=== PATIENT | female | born 1940 | race Caucasian/White ===

== ENCOUNTER 2018-05-03 13:34 | Inpatient (IN) | payer MEDICARE, MEDICAID ==
[~2018-05-03] VITALS: Ht 162.6 cm; Wt 62.8 kg
[~2018-05-03 13:34] MED LIST: ALBU8.5H5 INH; AMLO5TAB2 PO; ASPI325T17 PO; CARV-39 PO; CEFD300C37 PO; CHOL10002 PO; FURO-92 PO; GLYB5TAB3 PO; HYDR25TA6 PO; INSU100C SQ-INSULIN; INSU100V8 SQ; LEVO500T8 PO; METF10002 PO; POTA10TA31 PO; RAMI10CA PO; SIMV40TA3 PO
[2018-05-03] MEDS ORDERED: LEVO500T8 PO (13:52)
[2018-05-03] MEDS ORDERED: SODIUM CHLORIDE 0.9% 1,000ML IVBOLUS ONE (14:00)
[2018-05-03] MEDS ORDERED: SODIUM CHLORIDE FLUSH 10ML SYR IVF ONE (14:00)
[2018-05-03 14:28] LABS: MEAN CORPUSCULAR HEMOGLOBIN 25.3 pg (27.0-34.8); MEAN CORPUSCULAR HGB CONC 32.5 g/dL (32.4-35.8); MEAN CORPUSCULAR VOLUME 77.7 fL (80-100); MEAN PLATELET VOLUME 8.1 fL (7.4-10.4); PLATELET COUNT 381 x10^3/uL (130-400); RED BLOOD COUNT 4.42 x10^6/uL (3.82-5.3); RED CELL DISTRIBUTION WIDTH 17.3 % (9.6-15.2)
[2018-05-03 14:32] LABS: ALANINE AMINOTRANSFERASE 11 U/L (12-78); ALBUMIN 2.4 g/dL (3.4-5.0); ANION GAP 20 mmol/L (5-15); CALCIUM 9.8 mg/dL (8.5-10.1); CHLORIDE 102 mmol/L (98-107); CREATININE 0.85 mg/dL (0.55-1.02)
[2018-05-03 14:36] LABS: ALKALINE PHOSPHATASE 104 U/L (45-117); BILIRUBIN,TOTAL 0.7 mg/dL (0.2-1.0); CREATINE KINASE, TOTAL 105 U/L (26-192); TOTAL PROTEIN 6.5 g/dL (6.4-8.2); TROPONIN I < 0.015 ng/mL (0.000-0.045)
[2018-05-03 14:43] LABS: MICROSCOPIC NOT IND
[2018-05-03 14:43] LABS: INTERNATIONAL NORMALIZED RATIO 1.16 (0.93-1.1)
[2018-05-03 14:50] LABS: CULTURE INDICATED? NO
[2018-05-03 16:07] LABS: MD YES
[2018-05-03 16:08] LABS: <RBC MORPHOLOGY> NORMAL; BAND#(MANUAL) 0.39 x10^3/uL; BANDS%(MANUAL) 2 % (0-7); LYMPH#(MANUAL) 1.76 x10^3/uL (1-3.4); LYMPHS% (MANUAL) 9 % (22-44); SEG#(MANUAL) 17.44 x10^3/uL (1.8-6.8); SEGS% (MANUAL) 89 % (42-75)
[2018-05-03 16:09] LABS: <PLATELET ESTIMATE> ADEQUATE; <PLT MORPHOLOGY> NORMAL PLT MORPH
[2018-05-03] MEDS ORDERED: OMNIPAQUE 350 MG/ML, 100ML BOTTLE ONE (16:13)
[2018-05-03] MEDS ORDERED: SODIUM CHLORIDE 0.9% 1,000 ML IV SCH (16:42)
[2018-05-03] MEDS ORDERED: ONDANSETRON 2MG/ML, 2ML IVPush PRN (17:00)
[2018-05-03] MEDS ORDERED: ONDANSETRON ODT 4 MG PO PRN (17:00)
[2018-05-03] MEDS ORDERED: ACETAMINOPHEN 325 MG TABLET PO PRN (17:00)
[2018-05-03 17:35] LABS: THYROID STIMULATING HORMONE 2.09 mIU/L (0.358-3.740)
[2018-05-03] MEDS ORDERED: ALBUTEROL/IPRATROPIUM 2.5MG/0.5MG, 3 ML NPPB PRN (18:30)
[2018-05-03] MEDS: INSULIN GLARGINE 100 UNITS/ML, PEN SQ-INSULIN SCH (18:30)
[2018-05-03] MEDS ORDERED: ALBUTEROL SULFATE 2.5 MG/3 ML NPPB PRN (19:30)
[2018-05-03 19:40] VITALS: BP 124/68
[2018-05-03] MEDS: HEPARIN 5,000 UNITS/ML, 1ML SQ SCH (19:57)
[2018-05-03] MEDS: CARVEDILOL 6.25 MG TABLET PO SCH (19:57)
[2018-05-03] MEDS: RAMIPRIL 2.5 MG CAPSULE PO SCH (19:59)
[2018-05-03 20:07] VITALS: BP_SYST 109; BP_SYST 96; BP_DIAS 62; BP_DIAS 69
[2018-05-03] MEDS ORDERED: RAMIPRIL 10 MG CAPSULE PO SCH (21:00)
[2018-05-03] MEDS ORDERED: TEMPLATE NON-FORMULARY MED. (Carvedilol** 25 MG) PO SCH (21:00)
[2018-05-03 21:06] VITALS: BP 113/55
[2018-05-03] MEDS: CEFTRIAXONE 1,000 MG in SODIUM CHLORIDE 0.9% 50 ML IV SCH (21:08)
[2018-05-03] MEDS: FUROSEMIDE 20 MG/2 ML IV SCH (21:19)
[2018-05-03] MEDS: AZITHROMYCIN 500 MG in SODIUM CHLORIDE 0.9% 250 ML IV SCH (21:51)
[2018-05-04 01:33] VITALS: BP 108/62
[2018-05-04 03:17] VITALS: BP 99/57
[2018-05-04 03:21] VITALS: BP 112/64
[2018-05-04] MEDS: HEPARIN 5,000 UNITS/ML, 1ML SQ SCH ×3 (03:44→22:18)
[2018-05-04 05:33] LABS: BASOPHILS # (AUTO) 0.03 x10^3/uL (0-0.1); BASOPHILS % (AUTO) 0 % (0-1); EOSINOPHILS # (AUTO) 0.26 x10^3/uL (0-0.4); EOSINOPHILS % (AUTO) 2 % (1-7); LYMPHOCYTES # (AUTO) 1.28 x10^3/uL (1-3.4); LYMPHOCYTES % (AUTO) 9 % (22-44); MD NO; MEAN CORPUSCULAR HEMOGLOBIN 25.6 pg (27.0-34.8); MEAN CORPUSCULAR HGB CONC 32.9 g/dL (32.4-35.8); MEAN CORPUSCULAR VOLUME 77.8 fL (80-100); MEAN PLATELET VOLUME 7.8 fL (7.4-10.4); MONOCYTES # (AUTO) 0.73 x10^3/uL (0.2-0.8); MONOCYTES % (AUTO) 5 % (2-9); NEUTROPHILS # (AUTO) 11.42 x10^3/uL (1.8-6.8); NEUTROPHILS % (AUTO) 83 % (42-75); PLATELET COUNT 270 x10^3/uL (130-400); RED BLOOD COUNT 3.57 x10^6/uL (3.82-5.3); RED CELL DISTRIBUTION WIDTH 16.9 % (9.6-15.2)
[2018-05-04 05:42] LABS: ANION GAP 12 mmol/L (5-15); CALCIUM 9.3 mg/dL (8.5-10.1); CHLORIDE 106 mmol/L (98-107); CHOLESTEROL, TOTAL 100 mg/dL (140-239); CREATININE 1.01 mg/dL (0.55-1.02); TRIGLYCERIDES 100 mg/dL (50-200); VLDL CHOLESTEROL 20 mg/dL (0-25)
[2018-05-04 05:44] LABS: CHOL/HDL RATIO 3.6; HDL CHOL % 28 % (28-40); HDL CHOLESTEROL (DIRECT) 28 mg/dL (40-60); LDL CHOLESTEROL,CALCULATED 52 mg/dL (54-169); LDL/HDL RATIO 1.9 (0.5-3.0)
[2018-05-04] MEDS ORDERED: ALBUTEROL/IPRATROPIUM 2.5MG/0.5MG, 3 ML ONE (06:44)
[2018-05-04] MEDS ORDERED: ALBUTEROL SULFATE 2.5 MG/3 ML NPPB PRN (07:00)
[2018-05-04] MEDS ORDERED: ALBUTEROL/IPRATROPIUM 2.5MG/0.5MG, 3 ML NEB ONE (07:00)
[2018-05-04 08:55] VITALS: BP_SYST 89; BP_SYST 90; BP_SYST 93; BP_DIAS 49; BP_DIAS 51; BP_DIAS 54
[2018-05-04] MEDS: FUROSEMIDE 20 MG/2 ML IV SCH (09:00)
[2018-05-04] MEDS: CARVEDILOL 6.25 MG TABLET PO SCH ×2 (09:00→21:00)
[2018-05-04] MEDS ORDERED: HYDROCHLOROTHIAZIDE 25 MG TABLET PO SCH (09:00)
[2018-05-04] MEDS: RAMIPRIL 2.5 MG CAPSULE PO SCH ×2 (09:00→21:00)
[2018-05-04] MEDS ORDERED: TEMPLATE NON-FORMULARY MED. (Amlodipine Besylate** 5 MG) PO SCH (09:00)
[2018-05-04] MEDS: GlyBURIDE 5 MG TABLET PO SCH (09:22)
[2018-05-04] MEDS: POTASSIUM CHLORIDE 10 MEQ TABLET.ER PO SCH (09:22)
[2018-05-04 13:17] VITALS: BP 91/51
[2018-05-04 19:12] VITALS: BP 94/53
[2018-05-04] MEDS: INSULIN GLARGINE 100 UNITS/ML, PEN SQ-INSULIN SCH (21:00)
[2018-05-04] MEDS ORDERED: DEXTROSE 4 GM TAB.CHEW PO PRN (21:30)
[2018-05-04] MEDS ORDERED: DEXTROSE 50%, 50ML SYRINGE IVPush PRN (21:30)
[2018-05-04] MEDS ORDERED: GLUCAGON 1 MG IM PRN (21:30)
[2018-05-04] MEDS: CEFTRIAXONE 1,000 MG in SODIUM CHLORIDE 0.9% 50 ML IV SCH (22:18)
[2018-05-04] MEDS: SODIUM CHLORIDE FLUSH 10ML SYR IVF SCH (22:18)
[2018-05-04] MEDS: AZITHROMYCIN 500 MG in SODIUM CHLORIDE 0.9% 250 ML IV SCH (23:17)
[2018-05-05 01:14] VITALS: BP 99/58
[2018-05-05] MEDS: HEPARIN 5,000 UNITS/ML, 1ML SQ SCH ×3 (05:40→22:09)
[2018-05-05 06:24] LABS: MEAN CORPUSCULAR HEMOGLOBIN 25.3 pg (27.0-34.8); MEAN CORPUSCULAR HGB CONC 32.9 g/dL (32.4-35.8); MEAN CORPUSCULAR VOLUME 76.8 fL (80-100); MEAN PLATELET VOLUME 7.6 fL (7.4-10.4); PLATELET COUNT 271 x10^3/uL (130-400); RED CELL DISTRIBUTION WIDTH 16.9 % (9.6-15.2)
[2018-05-05 06:30] LABS: ALBUMIN 1.9 g/dL (3.4-5.0); ANION GAP 6 mmol/L (5-15); CALCIUM 9.6 mg/dL (8.5-10.1); CHLORIDE 107 mmol/L (98-107)
[2018-05-05 06:31] LABS: CREATININE 0.68 mg/dL (0.55-1.02)
[2018-05-05 07:31] VITALS: BP 124/66
[2018-05-05 07:55] LABS: BASOPHILS # (AUTO) 0.05 x10^3/uL (0-0.1); BASOPHILS % (AUTO) 0 % (0-1); EOSINOPHILS # (AUTO) 0.57 x10^3/uL (0-0.4); EOSINOPHILS % (AUTO) 5 % (1-7); LYMPHOCYTES # (AUTO) 0.93 x10^3/uL (1-3.4); LYMPHOCYTES % (AUTO) 8 % (22-44); MD MORPH REVIEW ONLY; MONOCYTES # (AUTO) 0.58 x10^3/uL (0.2-0.8); MONOCYTES % (AUTO) 5 % (2-9); NEUTROPHILS % (AUTO) 81 % (42-75)
[2018-05-05 07:57] LABS: ACANTHOCYTES 1+; ANISOCYTOSIS 1+; MICROCYTOSIS 1+; OVALOCYTES 1+
[2018-05-05 07:58] VITALS: BP 122/67
[2018-05-05 07:58] LABS: <PLATELET ESTIMATE> ADEQUATE; <PLT MORPHOLOGY> NORMAL PLT MORPH; ECHINOCYTES 1+
[2018-05-05] MEDS: FUROSEMIDE 20 MG/2 ML IV SCH (08:59)
[2018-05-05] MEDS: SODIUM CHLORIDE FLUSH 10ML SYR IVF SCH ×2 (08:59→22:08)
[2018-05-05] MEDS ORDERED: POTASSIUM CHLORIDE 20 MEQ in SODIUM CHLORIDE 0.9% 250 ML IV ONE (09:00)
[2018-05-05] MEDS ORDERED: KETOROLAC 30 MG/1 ML IV ONE (09:00)
[2018-05-05 11:34] VITALS: BP 102/54
[2018-05-05] MEDS: CARVEDILOL 6.25 MG TABLET PO SCH ×2 (11:36→22:07)
[2018-05-05] MEDS: POTASSIUM CHLORIDE 10 MEQ TABLET.ER PO SCH (11:37)
[2018-05-05] MEDS: GlyBURIDE 5 MG TABLET PO SCH (11:37)
[2018-05-05] MEDS: RAMIPRIL 2.5 MG CAPSULE PO SCH ×2 (11:37→22:07)
[2018-05-05 13:26] VITALS: BP 118/66
[2018-05-05 19:46] VITALS: BP 126/67
[2018-05-05] MEDS: INSULIN GLARGINE 100 UNITS/ML, PEN SQ-INSULIN SCH (21:00)
[2018-05-05] MEDS: CEFTRIAXONE 1,000 MG in SODIUM CHLORIDE 0.9% 50 ML IV SCH (22:06)
[2018-05-06] MEDS: AZITHROMYCIN 500 MG in SODIUM CHLORIDE 0.9% 250 ML IV SCH (00:09)
[2018-05-06 01:03] VITALS: BP 118/62
[2018-05-06] MEDS: HEPARIN 5,000 UNITS/ML, 1ML SQ SCH ×2 (05:59→14:00)
[2018-05-06 07:31] VITALS: BP 121/65
[2018-05-06 11:10] VITALS: BP 157/62
[2018-05-06] MEDS: SODIUM CHLORIDE FLUSH 10ML SYR IVF SCH (11:10)
[2018-05-06] MEDS: FUROSEMIDE 20 MG/2 ML IV SCH (11:10)
[2018-05-06] MEDS: GlyBURIDE 5 MG TABLET PO SCH (11:10)
[2018-05-06] MEDS: CARVEDILOL 6.25 MG TABLET PO SCH (11:11)
[2018-05-06] MEDS: POTASSIUM CHLORIDE 10 MEQ TABLET.ER PO SCH (11:11)
[2018-05-06] MEDS: RAMIPRIL 2.5 MG CAPSULE PO SCH (11:14)
[2018-05-06 11:22] VITALS: BP 149/77
[2018-05-06] MEDS ORDERED: ONDA4TAB13 PO (14:23)
[2018-05-06] MEDS ORDERED: CARV6.2512 PO (14:23)
[2018-05-06] MEDS ORDERED: FURO40TA6 PO (14:23)
[2018-05-06] MEDS ORDERED: RAMI2.5C PO (14:23)
[2018-05-06] MEDS ORDERED: POTA10TA5 PO (14:23)
[2018-05-06] MEDS ORDERED: DOXY50SY PO (14:23)
[2018-05-06 15:22] VITALS: BP 105/68
[2018-05-06] MEDS ORDERED: POTASSIUM CHLORIDE 10 MEQ TABLET.ER PO SCH (16:00)
[2018-05-06] MEDS ORDERED: DOXYCYCLINE 50 MG/5 ML ORAL SUSP PO SCH (21:00)
[2018-05-07] MEDS ORDERED: FUROSEMIDE 40 MG TABLET PO SCH (09:00)
[2018-05-18] MEDS ORDERED: TUBE5VIA ID (16:06)
[2018-05-18] MEDS ORDERED: COLL30OI TP (16:06)
[2018-05-18] MEDS ORDERED: AMLO10TA2 PO (16:06)
[2018-05-18] MEDS ORDERED: CHOL100012 PO (16:06)
[2018-05-18] MEDS ORDERED: CALC480G PO (16:06)
== END 2018-05-06 16:25 | DRG 871 ==
LOC: ED 17:06 → EDIP 17:23 → 4WST 19:00
PROVIDERS: ADMIT Internal Medicine; ATTEND Internal Medicine
PROC: 0T9B70Z Drainage of Bladder with Drainage Device, Via Natural or Artificial Opening (ICD-10-PCS; principal; 2018-05-03)
DX: A41.9 Sepsis, unspecified organism (principal); E43 Unspecified severe protein-calorie malnutrition; J18.9 Pneumonia, unspecified organism; J98.59 Other diseases of mediastinum, not elsewhere classified; I50.43 Acute on chronic combined systolic (congestive) and diastolic (congestive) heart failure; J44.0 Chronic obstructive pulmonary disease with (acute) lower respiratory infection; I11.0 Hypertensive heart disease with heart failure; R55 Syncope and collapse; F03.90 Unspecified dementia, unspecified severity, without behavioral disturbance, psychotic disturbance, mood disturbance, and anxiety; D63.8 Anemia in other chronic diseases classified elsewhere; E78.5 Hyperlipidemia, unspecified; I25.10 Atherosclerotic heart disease of native coronary artery without angina pectoris; I25.5 Ischemic cardiomyopathy; I35.0 Nonrheumatic aortic (valve) stenosis; R29.6 Repeated falls; I44.7 Left bundle-branch block, unspecified; E11.65 Type 2 diabetes mellitus with hyperglycemia; Z51.5 Encounter for palliative care; Z66 Do not resuscitate; Z82.49 Family history of ischemic heart disease and other diseases of the circulatory system; Z87.891 Personal history of nicotine dependence; Z90.710 Acquired absence of both cervix and uterus; Z95.1 Presence of aortocoronary bypass graft; Z87.440 Personal history of urinary (tract) infections; I25.2 Old myocardial infarction; Z90.49 Acquired absence of other specified parts of digestive tract; Z88.5 Allergy status to narcotic agent; Z68.23 Body mass index [BMI] 23.0-23.9, adult
CPT/HCPCS: 36415; 70450; 71045; 71260; 72131; 80048; 80053; 80061; 80069; 81003; 82550; 82962; 83036; 83605; 83880; 84145; 84443; 84484; 85025; 85610; 85730; 87040; 87081; 93005; 93306; 93880; 94640; 95816; 99285; J0456; J0696; J1644; J1885; J3480; J7620; Q9967; J1940; J7030; J7050